=== PATIENT | male | born 1975 | race Caucasian/White ===

== ENCOUNTER → 2019-12-07 09:15 | Outpatient (CLI) | payer BC, SELFPAY ==
[2019-12-06 15:20] VITALS: BMI 26.4
== END ==
PROVIDERS: Referring Provider Physician Assistant Surgical; Visit Provider Physician Assistant Surgical
DX: Z20.828 Contact with and (suspected) exposure to other viral communicable diseases (principal)
CPT/HCPCS: 87635; C9803; U0003